=== PATIENT | female | born 1970 | race Caucasian/White ===

== ENCOUNTER → 2016-05-28 | Outpatient (REF) | payer OTHER ==
[~2016-05-28] MED LIST: /AUGM875TA OR; /CELE20CA OR; COLA100C2 OR; No Historical Meds; VICO5TAB OR
== END | disposition home or self-care (01) ==
LOC: M SFHCLERA 10:22
PROVIDERS: ATTEND Physician Assistant
DX: J02.9 Acute pharyngitis, unspecified (principal)

== ENCOUNTER → 2021-02-10 | Outpatient (CLI) | payer OTHER ==
[~2021-02-10] MED LIST changes: -/CELE20CA OR; +CELE1CAP4 OR
== END ==
LOC: M LABSMTC 10:53
PROVIDERS: ATTEND Surgery
DX: Z01.818 Encounter for other preprocedural examination (principal); Z11.52 Encounter for screening for COVID-19